=== PATIENT | female | born 1935 | race Caucasian/White ===

== ENCOUNTER 2021-04-10 19:01 | Emergency (ER) | payer SELFPAY ==
[~2021-04-10] VITALS: Ht 152.4 cm; Wt 45.4 kg
[2021-04-10 20:39] LABS: HEMOGLOBIN 13.2 gm/dl (12.3-15.3); RED BLOOD COUNT 4.31 M/UL (4.00-5.10); WHITE BLOOD COUNT 2.7 K/UL (4.5-11.0)
[2021-04-11] MEDS ORDERED: DECADRON4 MG PO (02:43)
[2021-04-11] MEDS ORDERED: OMNICEF 300 MG300 MG PO (02:43)
[2021-04-11 10:54] LABS: ACINETOBACTER BAUMANNII Not Detected (Negative); CANDIDA ALBICANS Not Detected (Negative); CANDIDA KRUSEI Not Detected (Negative); CANDIDA TROPICALIS Not Detected (Negative); ENTEROCOCCUS Not Detected (Negative); HAEMOPHILUS INFLUENZAE Not Detected (Negative); KLEBSIELLA OXYTOCA Not Detected (Negative); KLEBSIELLA PNEUMONIAE Not Detected (Negative); KPC-CARBAPENEM-RESISTANCE GENE Not Detected (Negative); PROTEUS Not Detected (Negative); PSEUDOMONAS AERUGINOSA Not Detected (Negative); SERRATIA MARCESANS Not Detected (Negative); STAPHYLOCOCCUS Not Detected (Negative); STAPHYLOCOCCUS AUREUS Not Detected (Negative); STREP AGALACTIAE (GROUP B) Not Detected (Negative); STREP PYOGENES (GROUP A) Not Detected (Negative); STREPTOCOCCUS Not Detected (Negative); mecA (METHICILLIN RESIST GENE Not Detected (Negative); vanA/B (VANCOMYCIN RESIST GENE Not Detected (Negative)
[2021-04-11 12:15] LABS: ESCHERICHIA COLI DETECTED (Negative)
== END 2021-04-11 03:50 | disposition home or self-care (01) ==
LOC: ER1 19:01 → EDBD 19:01 → ER1 04-11 03:50
PROVIDERS: Family Medicine
DX: Z23 Encounter for immunization (principal); U07.1 COVID-19
CPT/HCPCS: 36600; 71045; 80053; 81001; 82803; 83615; 85025; 85652; 87040; 87077; 87086; 87150; 87186; 96374; 99285; J0696; J7030; M0243; U0002